=== PATIENT | male | born 1950 | race Caucasian/White ===

== ENCOUNTER 2020-04-07 21:04 | Emergency (ER) | payer OTHER ==
[~2020-04-07] VITALS: Ht 180.3 cm; Wt 77.1 kg
[2020-04-08] MEDS ORDERED: KEFLEX500 M2 PO (01:51)
[2020-04-08] MEDS ORDERED: ZOFRAN4 MG PO (01:51)
[2020-04-08] MEDS ORDERED: HYDROCODON-ACE1 EAC8 PO (01:51)
[2020-04-08 02:22] VITALS: BP 155/74
== END 2020-04-08 02:22 | disposition home or self-care (01) ==
LOC: M.ERS 21:04
DX: S02.5XXA Fracture of tooth (traumatic), initial encounter for closed fracture (principal); S61.511A Laceration without foreign body of right wrist, initial encounter; S01.412A Laceration without foreign body of left cheek and temporomandibular area, initial encounter; S61.512A Laceration without foreign body of left wrist, initial encounter; S90.812A Abrasion, left foot, initial encounter; I10 Essential (primary) hypertension; K21.9 Gastro-esophageal reflux disease without esophagitis; Y04.0XXA Assault by unarmed brawl or fight, initial encounter; Y93.89 Activity, other specified; Y92.89 Other specified places as the place of occurrence of the external cause; Y99.8 Other external cause status